=== PATIENT | female | born 1970 | race Caucasian/White ===

== ENCOUNTER 2018-04-12 02:15 | Outpatient (CLI) | END 2018-04-12 02:16 | disposition home or self-care (01) | LOC: AMBL 02:15 | PROVIDERS: ATTEND Internal Medicine Geriatric Medicine | DX: R07.9 Chest pain, unspecified (principal); M54.9 Dorsalgia, unspecified; R10.13 Epigastric pain ==

== ENCOUNTER 2018-12-22 13:06 | Outpatient (CLI) | END 2018-12-22 13:34 | disposition short-term general hospital (02) | LOC: AMBL 13:06 | PROVIDERS: ATTEND Emergency Medicine | DX: R10.32 Left lower quadrant pain (principal); R10.31 Right lower quadrant pain; R00.0 Tachycardia, unspecified; Z87.19 Personal history of other diseases of the digestive system ==